=== PATIENT | male | born 1995 | race African-American/Black ===

== ENCOUNTER 2024-09-20 02:27 | Emergency (ER) | payer OTHER ==
[~2024-09-20] VITALS: Ht 182.9 cm; Wt 90.7 kg
[2024-09-20] MEDS ORDERED: CEPH500T PO (02:53)
[2024-09-20] MEDS ORDERED: CEFTRIAXONE 1 G VIAL ONE (02:55)
[2024-09-20] MEDS ORDERED: LIDOCAINE HCL 1% 20 ML VIAL ONE (02:55)
[2024-09-20] MEDS: CEFTRIAXONE 1 G VIAL IM ONE (03:03)
[2024-09-20 03:04] VITALS: BP 131/65; O2SAT 100
== END 2024-09-20 03:05 | disposition home or self-care (01) ==
LOC: ER 02:48
DX: H00.014 Hordeolum externum left upper eyelid (principal); F12.90 Cannabis use, unspecified, uncomplicated; Z79.899 Other long term (current) drug therapy
CPT/HCPCS: 99283; 96372; J0696; J3490; A4606; A4663